=== PATIENT | female | born 1955 | race Two or more races ===

== ENCOUNTER 2024-03-23 15:00 | Emergency (ER) | payer MEDICARE, SELFPAY ==
--- NOTE | ~2024-03-23 | CT_ITS ---
EXAMINATION: CT HEAD WITHOUT CONTRAST CT CERVICAL SPINE WITHOUT CONTRAST CLINICAL INFORMATION: Fall. Headache. Neck pain. COMPARISON: None available. TECHNIQUE: Contiguous axial imaging was performed from the skull base to vertex without intravenous administration of contrast. Contiguous axial imaging was performed from the upper chest through the skull base without intravenous administration of contrast. Coronal and sagittal reformats were obtained at the acquisition workstation. This CT examination was performed using dose optimization techniques as appropriate, variously including the following: *Automated exposure control. *Adjustment of mA and/or kV according to patient size (this includes techniques or standardized protocols for targeted exams where dose is matched to indication/reason for exam; i.e. extremities or head). *Use of iterative reconstruction technique. DLP: 1 mGy-cm FINDINGS: Head: There is no evidence of acute intracranial hemorrhage or edematous territorial infarction. Abel-white matter differentiation is preserved. A few foci of hypoattenuation in the periventricular and deep white matter are consistent with mild microangiopathy. The ventricles are normal in morphology and size. No evidence for obstructive hydrocephalus. No abnormal mass effect or midline shift. No extra-axial fluid collections. No acute soft tissue or osseous abnormalities. Mild mucosal thickening of the paranasal sinuses. The mastoid air cells and middle ear cavities are clear. Cervical Spine: The atlantooccipital and atlantoaxial articulations remain well aligned. Straightening of the normal cervical lordosis. Otherwise, there is anatomic alignment of the vertebral bodies and posterior elements. No evidence of acute fracture or subluxation. The vertebral body heights and disc spaces are maintained. Advanced degenerative disc disease at C5-C6. Moderate degenerative disc all additional levels. Facet and uncovertebral joint arthropathy leads to osseous encroachment on the neural foramina at C5-C6. There is no prevertebral soft tissue swelling. Moderate heterogeneous enlargement of the thyroid gland. The remaining cervical soft tissues are within normal limits. The lung apices demonstrate no abnormalities. CT/CT cervical spine wo IV con IMPRESSION: 1. No evidence of acute intracranial hemorrhage or edematous territorial infarction. Mild underlying microangiopathy. 2. No evidence of acute fracture or traumatic subluxation of the cervical spine. Moderate multilevel degenerative spondyloarthropathy of the cervical spine. 3. Moderate heterogeneous enlargement of the thyroid gland. Recommend further characterization with thyroid ultrasound.
--- NOTE | 2024-03-23 15:09 | ED.GENADULT ---
HPI - General Adult General Chief complaint: Fall Stated complaint: fell head inj neck pain Time Seen by Provider: 03/23/24 21:15 Source: patient, family (daughter) and commercial pest control technician (ugandan) Mode of arrival: ambulatory Limitations: no limitations History of Present Illness ED Provider: RAIMUNDO GUAMAN PA-C HPI narrative: 68 year old ugandan speaking female with past medical history significant for diabetes presents to the ED today with her daughter for evaluation of recurrent falls. Patient reports an increased in mechanical falls over the last few months. Admits she feels her legs are giving out from under her. She's been evaluated for this multiple times in [place] however has had unremarkable workups. [place] the [place] yesterday. Patient reports fall 3 days ago where she struck the front of her head on the ground. She is unsure whether or not she lost consciousness. Additionally admits to near fall yesterday while arriving at the airport. Another near fall today. At present, reports headache and diffuse neck pain. Denies dizziness, vision changes, chest pain, palpitations, sob. Related Data Previous Rx's ?Medication ?Instructions ?Recorded potassium chloride 20 mEq 20 meq PO BID 3 weeks #42 tabs 03/23/24 tablet,extended release Allergies Allergy/AdvReac Type Severity Reaction Status Date / Time No Known Allergies Allergy Verified 03/23/24 15:18 Review of Systems Review of Systems: Constitutional: No fever, chills, fatigue, night sweats, weight changes ENT/Mouth: No ear pain, hearing loss, nasal congestion, sinus pain, rhinorrhea, sore throat Eyes: No eye pain, swelling, redness, vision changes, discharge Cardio: No chest pain, palpitations, RAIN, orthopnea, peripheral edema Pulm: No SOB, cough, sputum, wheezing, dyspnea, hemoptysis GI: No nausea, vomiting, hematemesis, abdominal pain, diarrhea, constipation, hematochezia, melena : No irregular bleeding, dysuria, frequency, urgency, hesitancy, hematuria, flank pain, urinary flow changes, urinary incontinence or retention MSK: No back pain, neck pain, joint pain, myalgias Skin: No lesions, rashes Neuro: No weakness, numbness, paresthesias, LOC, dizziness, +generalized weakness, +headache Psych: No anxiety/panic, depression, SI/HI, AH/VH All other systems reviewed and are negative. [facility] Past Medical History Attestation statement: The following information was validated with the patient. Source: old records reviewed and nursing notes reviewed Social History Social History Smoked in Last 30 Days: No Use of substances other than those prescribed or required for medical reasons: No Advance Directives: No Advance Directives Information Provided: No Do you have a plan to hurt others: No Plan Physical Exam ED Vital Signs: Vital Signs - 24 hr 03/23/24 22:13 03/23/24 22:42 Temperature 97.1 F 97.1 F Pulse Rate 62 62 Respiratory Rate 14 14 Blood Pressure 130/74 130/74 Pulse Oximetry 97 97 Oxygen Delivery Method Room Air Room Air BMI result Body Mass Index 28.5 Vital signs stable, afebrile. Const General: cooperative, healthy appearing, comfortable and no acute distress Orientation/consciousness: patient oriented x3 Limitations: no limitations HENMT Other: Healing abrasions noted to right forehead. no active bleeding. No surrounding erythema. No discharge. Head: Yes normal to inspection, Yes No palpable skull fracture present, Yes normocephalic and Yes atraumatic Eyes General: appearance normal, both eyes and all related structures Pupils: Equal, round and reactive pupils present EOM: EOMs intact bilaterally Neck Other: No midline cervical spinous tenderness or step-off deformity. Bilateral cervical paraspinal muscle tenderness to palpation. FROM intact. Neck: Yes normal visual inspection and Yes full ROM Resp Effort & Inspection: normal respiratory effort and able to speak in complete sentences Auscultation: clear to auscultation bilaterally Cardio Rate: regular rate Rhythm: regular rhythm GI Inspection: Yes normal to inspection and No abdominal wall ecchymosis Palpation (GI): Soft to palpation and nontender General: Yes no CVA tenderness Back/Spine/Pelvis Back: no CVA tenderness Skin General skin exam: no rashes or lesions noted Neuro General: patient oriented x3, gait normal, tone normal, moves all extremities and no focal motor deficits Cranial nerves: Yes Equal, round and reactive pupils present Gait exam (Neuro): Normal gait present Motor exam (neuro): 5/5 motor strength present throughout and Pronator motor function not present Coordination: [id number] test normal, [id number]-[id number] test normal and Normal rapid alternating movements of the distal upper extremity present (Neuro) Pupils: Normal pupillary reactivity/response: bilateral Extrem General: Yes normal to inspection Course Course Course Narrative: This is an RME performed by Aleksandar Yoo CNP: Additional HPI, ROS, PE not included below will be deferred to primary provider. Patient is a 68 year old female past medical history of diabetes who presents to the emergency department with family for evaluation. She has been experiencing multiple episodes of generalized weakness, legs give out from under her, and she subsequently falls. Had a fall 3 days ago where she struck the front of her head onto the ground, it is unclear whether any loss of consciousness occurred. She had a near fall yesterday while at the airport, and an additional near fall today. She reports a posterior and frontal headache currently and diffuse neck pain w/o midline tenderness, focal neurological deficits. Plan: Labs, urinalysis, CT Reevaluation(s) Reevaluation #1: 1263-- CBC without leukocytosis. Normocytic anemia. H&H stable. Chemistry showing hypokalemia to 3.0 Patient declining IV repletion. PO ordered. Random glucose 116. No concern for DKA. No anion gap. Normal renal function. Normal liver function. Troponin undetectable. EKG showing normal sinus rhythm without acute ischemic changes. CT brain/head without intracranial bleed or fracture. CT C-spine without fracture subluxation. There is incidental finding of moderate heterogeneous enlargement of the thyroid gland. I discussed these results with patient and advised outpatient follow-up for monitoring. > patient tells me that she needs to leave the ED as she will not have a ride later tonight. I informed her that we are still waiting for urine sample and she tells me that she is unable to give one at this time and is declining UA. She denies any urinary symptoms. > will send rx for potassium supplementation. referrals to PCP provided. Patient has remained stable throughout ED visit today. Discussed worrisome signs and symptoms and when to return to the ED. All questions answered at this time. Patient is agreeable with disposition and stable for discharge. Medications Administered Discontinued Medications Generic Name Dose Route Start Last Admin Trade Name Freq PRN Reason Stop Dose Admin Potassium Chloride 20 meq 03/23/24 22:03 03/23/24 22:16 Potassium Chloride Er 20 Meq Tab.Er.Prt PO 03/23/24 22:04 20 meq ONCE ONE Administration Medical Decision Making Medical Decision Making [facility] Narrative: 68 year old ugandan speaking female with past medical history significant for diabetes presents to the ED today with her daughter for evaluation of recurrent falls. Vital signs stable, afebrile. She is nontoxic appearing in no acute distress. Lying comfortably on the exam bed. Exam is nonfocal. Cerebellum intact. No midline cervical spinous tenderness or step-off deformity. There is bilateral cervical paraspinal muscle tenderness to palpation. Full ROM to C-spine intact. No other midline spinous tenderness or step-off deformity. Neurovascularly intact distally. Sensation intact to light touch throughout. Strength 5/5 throughout. Ambulating with steady gait. Differential diagnosis includes anemia, electrolyte abnormality, dehydration, urinary tract infection, ACS, arrhythmia, hypo/hyperglycemia, ICH, concussion, headache, migraine Plan for labs, UA, CT, re-evaluation Differential Diagnosis Differential Diagnoses: The differential diagnosis associated with the presentation includes as above Admission/Observation Consideration of admission/observation: Escalation of care including admission/observation considered Admission considered on presentation Lab Data [facility] Lab Attestation statement: I reviewed the patient's lab results. as above 03/23/24 15:38 03/23/24 15:38 Labs: Lab Results 03/23/24 Range/Units 15:38 WBC 6.0 (4.8-10.8) X10*3/uL RBC 4.12 L (4.20-5.50) X10*6/uL Hgb 11.9 L (12.0-16.0) g/dl Hct 35.6 L (37.0-47.0) % MCV 86.4 (80.0-98.0) fL MCH 28.9 (27.0-33.0) pg MCHC 33.4 (31.0-35.0) g/dl RDW 14.9 (11.0-16.0) % Plt Count 257 (160-400) X10*3/uL MPV 10.4 (9.4-12.3) fL Immature Gran % (Auto) 0.5 H (0.0-0.4) % Neut % (Auto) 50.8 (45-73) % Lymph % (Auto) 36.0 (20-40) % Mills % (Auto) 9.0 (2-11) % Eos % (Auto) 2.7 (0-4) % Baso % (Auto) 1.0 (0-2) % Lymph # (Auto) 2.2 (1.2-4.9) X10*3/uL Mills # (Auto) 0.5 (0.1-1.2) X10*3/uL Eos # (Auto) 0.2 (0.0-0.4) X10*3/uL Baso # (Auto) 0.1 (0.0-0.2) X10*3/uL Abs Immat Gran (auto) 0.03 (0.00-0.03) X10*3/uL Absolute Neuts (auto) 3.1 (2.0-8.3) x10*3/uL Absolute Nucleated RBC 0.000 (0.0-0.012) X10*3/uL Nucleated RBC % (auto) 0.0 (0.0-0.2) /100WBC PT 12.8 (11.1-13.3) SEC INR 1.1 (0.9-1.1) Sodium 142 (135-145) mmol/L Potassium 3.0 L (3.3-5.1) mmol/L Chloride 107 (96-108) mmol/L Carbon Dioxide 25 (22-29) mmol/L Anion Gap 13 (12-20) BUN 10 (9-16) mg/dL Creatinine 0.88 (0.5-1.4) mg/dL Estim Creat Clear Calc 59.9 Estimated GFR > 60 Random Glucose 116 H (60-115) mg/dL Calcium 9.2 (8.4-10.2) mg/dL Magnesium 2.1 (1.6-2.6) mg/dL Total Bilirubin 1.6 H (0.0-1.0) mg/dL AST 22 (5-31) U/L ALT 19 (0-31) U/L Alkaline Phosphatase 75 (39-117) U/L Troponin I High Sens < 2.7 (<3.5-17.0) ng/L Total Protein 7.1 (6.5-8.0) g/dL Albumin 4.0 (3.5-5.0) g/dL Independent Interpretation I performed an independent interpretation of an: EKG and CT Scan Interpretation: EKG showing normal sinus rhythm with a rate of 65 beats per minute, QT 416, QTC 432, no acute ischemic changes or ST elevations. CT head/brain without bleed, agree with radiologist's interpretation. CT C-spine without fracture, agree with radiologist's interpretation. Radiology Impression Discussion of test interpretation with radiology: I have reviewed the radiologist's reading. Radiologist Impression: EXAMINATION: CT HEAD WITHOUT CONTRAST CT CERVICAL SPINE WITHOUT CONTRAST CLINICAL INFORMATION: Fall. Headache. Neck pain. COMPARISON: None available. TECHNIQUE: Contiguous axial imaging was performed from the skull base to vertex without intravenous administration of contrast. Contiguous axial imaging was performed from the upper chest through the skull base without intravenous administration of contrast. Coronal and sagittal reformats were obtained at the acquisition workstation. This CT examination was performed using dose optimization techniques as appropriate, variously including the following: *Automated exposure control. *Adjustment of mA and/or kV according to patient size (this includes techniques or standardized protocols for targeted exams where dose is matched to indication/reason for exam; i.e. extremities or head). *Use of iterative reconstruction technique. DLP: 1 mGy-cm FINDINGS: Head: There is no evidence of acute intracranial hemorrhage or edematous territorial infarction. Abel-white matter differentiation is preserved. A few foci of hypoattenuation in the periventricular and deep white matter are consistent with mild microangiopathy. The ventricles are normal in morphology and size. No evidence for obstructive hydrocephalus. No abnormal mass effect or midline shift. No extra-axial fluid collections. No acute soft tissue or osseous abnormalities. Mild mucosal thickening of the paranasal sinuses. The mastoid air cells and middle ear cavities are clear. Cervical Spine: The atlantooccipital and atlantoaxial articulations remain well aligned. Straightening of the normal cervical lordosis. Otherwise, there is anatomic alignment of the vertebral bodies and posterior elements. No evidence of acute fracture or subluxation. The vertebral body heights and disc spaces are maintained. Advanced degenerative disc disease at C5-C6. Moderate degenerative disc all additional levels. Facet and uncovertebral joint arthropathy leads to osseous encroachment on the neural foramina at C5-C6. There is no prevertebral soft tissue swelling. Moderate heterogeneous enlargement of the thyroid gland. The remaining cervical soft tissues are within normal limits. The lung apices demonstrate no abnormalities. CT/CT head/brain wo IV con IMPRESSION: 1. No evidence of acute intracranial hemorrhage or edematous territorial infarction. Mild underlying microangiopathy. 2. No evidence of acute fracture or traumatic subluxation of the cervical spine. Moderate multilevel degenerative spondyloarthropathy of the cervical spine. 3. Moderate heterogeneous enlargement of the thyroid gland. Recommend further characterization with thyroid ultrasound. Independent Historian Clinical information obtained from an independent historian. History obtained from or confirmed by: Other (daughter ) Prescription Management I considered prescription management with: Other (Potassium) Chronic Conditions Patient?s care impacted by: Diabetes Social Determinants Patient?s care significantly limited by Social Determinants of Health including: Other Social Determinant of Health Critical Care Time Critical Care Time Critical Care Time: No Discharge Plan Discharge Clinical Impression: Hypokalemia Patient Disposition: Home, Self-Care Instructions: Potassium Content of Foods List (ED), Hypokalemia (ED) Additional Instructions: The CT scan of your head/ neck did not reveal fracture or bleed. Incidental finding of enlarged thyroid. Please follow up with PCP and/or office machine service supervisor as this needs to be further evaluated. You have been provided with referrals. Your blood work today showed low potassium. You were given a dose of potassium in ED however declined IV potassium repletion. Potassium supplements have been sent to your pharmacy Please follow up with PCP to have potassium re-checked in 2 weeks to ensure normalization. If you do not have a PCP, a referral has been provided to you. Return with new or worsening symptoms. In the case of an emergency call 911. Prescriptions: New potassium chloride 20 mEq tablet extended release 20 meq PO BID 21 Days Qty: 42 0RF Referrals: [facility] [place] Endocrinology [Provider Group] [facility] [place] [facility] [Provider Group] [facility] [place] [facility] [Provider Group] Interventions: ED Discharge Assessment Last Done: 03/23/24 22:42 Discharge Date/Time: 03/23/24 22:46 Print Language: Kosovan
[2024-03-23 15:17] VITALS: BP 130/70; PULSE 65; RESP 16; TEMP 36.6; O2SAT 97; BMI 28.5
--- NOTE | 2024-03-23 15:17 | ECG_ITS ---
Test Reason : FALLS, WEAKNESS Blood Pressure : / mmHG Vent. Rate : 065 BPM Atrial Rate : 065 BPM P-R Int : 144 ms QRS Dur : 080 ms QT Int : 416 ms P-R-T Axes : 029 -06 020 degrees QTc Int : 432 ms Normal sinus rhythm Inferior infarct , age undetermined Abnormal ECG No previous ECGs available Referred By: Komal Yoo Electronically Signed By:CHU GALLEGO MD
[2024-03-23 15:42] LABS: MANUAL DIFF FLAG NO
[2024-03-23 15:49] LABS: Basophils Absolute Auto 0.1 X10*3/uL (0.0-0.2); Eosinophils Absolute Auto 0.2 X10*3/uL (0.0-0.4); Eosinophils Percent Auto 2.7 % (0-4); Hematocrit 35.6 % (37.0-47.0); Hemoglobin 11.9 g/dl (12.0-16.0); Imm Gran Abs Auto 0.03 X10*3/uL (0.00-0.03); Imm Gran Pct Auto 0.5 % (0.0-0.4); Lymphocytes Absolute Auto 2.2 X10*3/uL (1.2-4.9); Mean Corpuscular HGB Conc 33.4 g/dl (31.0-35.0); Mean Corpuscular Hemoglobin 28.9 pg (27.0-33.0); Mean Corpuscular Volume 86.4 fL (80.0-98.0); Mean Platelet Volume 10.4 fL (9.4-12.3); Monocytes Absolute Auto 0.5 X10*3/uL (0.1-1.2); Neutrophils Absolute Auto 3.1 x10*3/uL (2.0-8.3); Neutrophils Percent Auto 50.8 % (45-73); Platelet Count 257 X10*3/uL (160-400); Red Blood Count 4.12 X10*6/uL (4.20-5.50); Red Cell Distribution Width 14.9 % (11.0-16.0)
[2024-03-23 15:50] LABS: INTERNATIONAL NORM RATIO 1.1 (0.9-1.1); Prothrombin Time 12.8 SEC (11.1-13.3)
[2024-03-23 16:28] LABS: Anion Gap 13 (12-20); Blood Urea Nitrogen 10 mg/dL (9-16); Carbon Dioxide 25 mmol/L (22-29); Chloride 107 mmol/L (96-108); Sodium 142 mmol/L (135-145)
[2024-03-23 16:29] LABS: Alanine Aminotransferase 19 U/L (0-31); Aspartate Amino Transferase 22 U/L (5-31); Bilirubin Total 1.6 mg/dL (0.0-1.0); Calcium 9.2 mg/dL (8.4-10.2); Creatinine Clr Calc Pharmacy 59.9; Estimated Glomerular Filt Rate > 60; Glucose Random 116 mg/dL (60-115); Magnesium 2.1 mg/dL (1.6-2.6)
[2024-03-23 16:33] LABS: Alkaline Phosphatase 75 U/L (39-117); Total Protein 7.1 g/dL (6.5-8.0)
--- NOTE | 2024-03-23 20:56 | PC.NURSE ---
Pt ambulatory to 19H with steady gait. Assumed care of pt at this time. A&Ox3 skin pwd respirations even unlabored. Awaiting primary provider eval, aware of plan of care.
--- NOTE | 2024-03-23 22:00 | PC.NURSE ---
Upon RN approaching pt to place IV access for med administration pt requested oral med stating her ride needed to leave and she wouldn't have any other way home later. PA notified, oral med to be given.
[2024-03-23 22:08] LABS: Troponin-I High Sensitivity < 2.7 ng/L (<3.5-17.0)
[2024-03-23 22:13] VITALS: BP 130/74; PULSE 62; RESP 14; TEMP 36.2; O2SAT 97
[2024-03-23] MEDS: Potassium Chloride ER 20 MEQ TAB.ER.PRT PO (22:16)
--- NOTE | 2024-03-23 22:41 | PC.NURSE ---
Pt medicated per MAR, cleared for dc home with script for oral potassium replacement and f/u with pcp.
[2024-03-23 22:42] VITALS: BP 130/74; PULSE 62; RESP 14; TEMP 36.2; O2SAT 97
== END 2024-03-23 22:46 | disposition home or self-care (01) ==
PROVIDERS: Nurse Practitioner Family; Physician Assistant Medical; Emergency Provider Emergency Medicine
DX: E87.6 Hypokalemia (principal); M54.2 Cervicalgia; R29.6 Repeated falls; R53.1 Weakness; R51.9 Headache, unspecified; Z91.81 History of falling; E11.9 Type 2 diabetes mellitus without complications
CPT/HCPCS: 36415; 70450; 72125; 80053; 83735; 84484; 85025; 85610; 93005; 99283; 99284

== ENCOUNTER → 2024-03-23 15:17 | Outpatient (BNV) | payer MEDICARE, SELFPAY | PROVIDERS: Emergency Provider Emergency Medicine; Visit Provider Internal Medicine Cardiovascular Disease | DX: R94.31 Abnormal electrocardiogram [ECG] [EKG] (principal) | CPT/HCPCS: 93010 ==

== ENCOUNTER 2024-04-18 10:38 | Outpatient (AMB) | payer MEDICARE, SELFPAY ==
[2024-04-18 10:40] VITALS: BP 128/64; PULSE 71; BMI 28.9
--- NOTE | 2024-04-18 10:40 | MHC.OFFVIS ---
Vital Signs 04/18/24 10:40 Height 5 ft 4 in Weight 168 lb 10.458 oz BMI 28.9 BP 128/64 Blood Pressure Location Lt brachial Position Sitting Pulse 71 Pulse Source Pulse Oximeter Intake Visit Reasons: Incidental finding of enlarged thyroid Intake Note: New patient present today for incidental finding of enlarged thyroid. Sandfill Operator Required: Yes Sandfill Operator Language: Veterinarian Laboratory Animal Care Services: Sandfill Operator Present Sandfill Operator Name: Chaim Yo Information Interpreted: non-clinical & clinical Accompanied by: Daughter Allergies No Known Allergies Allergy (Verified 04/18/24 10:45) Medication List - Last Reconciled 04/18/24 by Eugene Hudson MD folic acid 1 mg PO DAILY gabapentin 800 mg PO BEDTIME gabapentin 300 mg PO DAILY pantoprazole (Protonix) 20 mg PO DAILY potassium chloride ER 20 mEq PO BID 3 weeks HPI Comments Details: 68 YO F with who is seen in consultation for multinodular thyroid at the request of PCP. Was found to have heterogeneous enlargement of the thyroid on CT of the neck 1 mo ago admits to dysphagia and hoarseness of voice. Admits to sensation of swelling in the neck or difficulty breathing while lying flat. Denies any tenderness in the neck. Denies any palpitations, tremors,+ weight loss, -frequent bowel movements. Denies any ocular complaints, blurred or double vision. Has hair loss, +dry skin, heat or cold intolerance, weight gain, confusion. Denies any history of head or neck irradiation. Denies any family history of thyroid cancer. Had biopsy of nodules in the past. Thyroid US: Labs: [facility] Medical History (Updated 04/18/24 @ 10:51 by Eugene Hudson MD) Goiter FHx: cholecystectomy Surgical History (Updated 04/18/24 @ 10:48 by JOVANNI Haynes) History of knee surgery Family History (Updated 04/18/24 @ 10:49 by JOVANNI Haynes) Mother Asthma Father Asthma Social History (Updated 04/18/24 @ 10:48 by JOVANNI Haynes) Alcohol intake: never Patient Tobacco Use Status: Never used Tobacco Physical Exam Vital Signs: Last Vital Signs Pulse 71 04/18/24 10:40 BP 128/64 04/18/24 10:40 BMI result Body Mass Index 28.9 HEENT reveals absence of lid lag , stare or proptosis or eyebrow loss. Thyroid gland measure 15 gms . No nodules or tenderness palpated. The lower border of the thyroid can not be palpated There is no cervical adenopathy palpated. Lungs CTA. Heart S1, S2 Reg R/R -M/R/G. Abdominal exam benign. Skin exam reveals absence of dryness or thyroid dermopathy or vitiligo. Nail exam reveals absence of thyroid acropachy or oncholysis. Neurologic exam reveals 2+ reflexes . Muscle Strength is 5/5 proximally. There are no tremors in upper extremities. There is a negative Armando sign Assessment & Plan Assessment & Plan (1) Goiter: Code(s): E04.9 - Nontoxic goiter, unspecified Category: Medical Plan: This 68-year-old female found to have an enlarged heterogeneous gland on CT of the neck. Appears to be clinically euthyroid. Plan is to check TSH and free T4 . I will refer the patient's Dr. Cook comber tender starting this practice with expertise in thyroid ultrasound to perform a thyroid ultrasound and also note whether the thyroid is extending substernally. Is not obvious that the patient's complaints are due to a substernal thyroid but want to check if there is a question of substernal extension, Dr. Cook might order CT scan of the chest and neck Orders: Orders Free T4 (Free Thyroxine) Today E04.9 - Nontoxic goiter, unspecified Thyroid Stimulating Hormone Today E04.9 - Nontoxic goiter, unspecified US thyroid Today E04.9 - Nontoxic goiter, unspecified Coding Level of Care Code New Pt Level 4 (49398) Diagnoses Goiter E04.9
== END 2024-04-18 11:15 | disposition home or self-care (01) ==
PROVIDERS: Visit Provider Internal Medicine Endocrinology, Diabetes & Metabolism
DX: E04.9 Nontoxic goiter, unspecified (principal)
CPT/HCPCS: 99204

== ENCOUNTER → 2024-04-18 10:38 | Outpatient (BNVA) | payer MEDICARE, SELFPAY | PROVIDERS: Visit Provider Internal Medicine Endocrinology, Diabetes & Metabolism | DX: E04.9 Nontoxic goiter, unspecified (principal) | CPT/HCPCS: 36415; 84439; 84443; 99202 ==

== ENCOUNTER 2024-04-18 11:15 | Outpatient (REF) | payer MEDICARE, SELFPAY ==
[2024-04-18 14:06] LABS: Free T4 (Free Thyroxine) 0.87 ng/dL (0.71-1.85); Thyroid Stimulating Hormone 1.74 uIU/mL (0.32-4.0)
== END 2024-04-18 11:16 | disposition home or self-care (01) ==
LOC: HO.10HDL 11:15
PROVIDERS: Visit Provider Internal Medicine Endocrinology, Diabetes & Metabolism
DX: Z13.89 Encounter for screening for other disorder (principal)
CPT/HCPCS: 36415; 84439; 84443